=== PATIENT | male | born 1955 | race African-American/Black ===

== ENCOUNTER 2018-12-09 19:42 | Observation (INO) | payer MEDICARE, MEDICAID ==
[2018-12-09 20:13] LABS: ABSOLUTE EOSINOPHILS # (AUTO) 0.1 10^3/uL (0.0-0.6); ABSOLUTE MONOCYTES (AUTO) 0.4 10^3/uL (0.1-1.4); EOSINOPHILS % (AUTO) 1.9 % (0-6); RED BLOOD COUNT 5.69 10^6/uL (4.35-5.55); TOTAL CELLS COUNTED % (AUTO) 100 %
[2018-12-09 20:16] LABS: ABSOLUTE BASOPHILS # (AUTO) 0.1 10^3/uL (0.0-0.2); ABSOLUTE LYMPHOCYTES (AUTO) 2.3 10^3/uL (0.5-4.7); ABSOLUTE NEUT (AUTO) 3.4 10^3/uL (1.7-8.2); BASOPHILS % (AUTO) 1.5 % (0-2); HEMATOCRIT 50.3 % (37.9-51.0); HEMOGLOBIN 17.1 g/dL (13.5-17.0); LYMPHOCYTES % (AUTO) 36.6 % (13-45); MEAN CORPUSCULAR HGB CONC 33.9 g/dL (32.0-36.0); MEAN CORPUSCULAR VOLUME 88 fl (80-97); MONOCYTES % (AUTO) 6.4 % (3-13); RED CELL DISTRIBUTION WIDTH 14.5 % (11.5-14.0); SEGMENTED NEUTROPHILS % (AUTO) 53.6 % (42-78); WHITE BLOOD COUNT 6.3 10^3/uL (4.0-10.5)
[2018-12-09 20:33] LABS: ALBUMIN 4.2 g/dL (3.5-5.0); ALKALINE PHOSPHATASE 91 U/L (38-126); ANION GAP 10 (5-19); ASPARTATE AMINO TRANSFERASE 26 U/L (17-59); BILIRUBIN,DIRECT 0.1 mg/dL (0.0-0.4); BILIRUBIN,TOTAL 0.8 mg/dL (0.2-1.3); BLOOD UREA NITROGEN 15 mg/dL (7-20); CALCIUM 9.9 mg/dL (8.4-10.2); CARBON DIOXIDE 25 mmol/L (22-30); CHLORIDE 105 mmol/L (98-107); CREATINE KINASE 83 U/L (55-170); GLUCOSE 158 mg/dL (75-110); POTASSIUM 3.1 mmol/L (3.6-5.0); TOTAL PROTEIN 7.8 g/dL (6.3-8.2)
[2018-12-09 20:45] LABS: CREATINE KINASE MB 0.27 ng/mL (<4.55); PLATELET COUNT 249 10^3/uL (150-450)
--- NOTE | 2018-12-09 20:45 | RADIOLOGY REPORT (SQ) ---
EXAM DESCRIPTION: XR CHEST 1 VIEW COMPLETED DATE/TME: 12/09/2018 19:51 CLINICAL HISTORY: 63 years Male general weakness COMPARISON: 04/03/2011 FINDINGS: The cardiomediastinal silhouette appears unremarkable. No consolidating infiltrates or pleural effusions. No pneumothorax. IMPRESSION: No acute abnormality is identified.
[2018-12-09 20:46] LABS: TROPONIN I < 0.012 ng/mL
--- NOTE | 2018-12-09 21:20 | ER Document Report ---
ED General - General Chief Complaint: General Weakness Stated Complaint: MUSCLE WEAKNESS Time Seen by Provider: 12/09/18 21:06 Notes: Patient is a 63-year-old male that comes to the emergency department for chief complaint of weakness to his right hand and difficulty walking with frequent falls at home. He states when he stands his right leg started shaking under him and feels like it will not hold his weight. He states this is been going on for 2 weeks now, he states he did not seek evaluation then because he thought it would improve. He comes by EMS from home. He denies headache, chest pain, nausea/vomiting, or any other complaints. Past medical history of hypertension, he does smoke, he takes a baby aspirin daily. He denies history of CVA. He follows with a local [place] clinic. TRAVEL OUTSIDE OF THE [place] IN LAST 30 DAYS: No - Related Data Allergies/Adverse Reactions: No Known Allergies Allergy (Unverified 04/02/11 23:47) Past Medical History - General Information source: Patient - Social History Smoking Status: Current Every Day Smoker Frequency of alcohol use: None Drug Abuse: None Lives with: Family Family History: Reviewed & Not Pertinent Patient has suicidal ideation: No Patient has homicidal ideation: No - Past Medical History Cardiac Medical History: Reports: Hx Hypertension Past Surgical History: Reports: Hx Orthopedic Surgery - R knee replacement - Immunizations Hx Diphtheria, Pertussis, Tetanus Vaccination: Yes Hx Pneumococcal Vaccination: 02/13/00 Review of Systems - Review of Systems Constitutional: No symptoms reported EENT: No symptoms reported Cardiovascular: No symptoms reported Respiratory: No symptoms reported Gastrointestinal: No symptoms reported Genitourinary: No symptoms reported Male Genitourinary: No symptoms reported Musculoskeletal: See HPI Skin: No symptoms reported Hematologic/Lymphatic: No symptoms reported Neurological/Psychological: See HPI Physical Exam - Vital signs Vitals: Resp 21 H 12/09/18 19:50 - Notes Notes: GENERAL: Alert, interacts well. No acute distress. HEAD: Normocephalic, atraumatic. EYES: Pupils equal, round, and reactive to light. Extraocular movements intact. ENT: Oral mucosa moist, tongue midline. Oropharynx unremarkable. Airway patent. LUNGS: Clear to auscultation bilaterally, no wheezes, rales, or rhonchi. No respiratory distress. HEART: Regular rate and rhythm. No murmur ABDOMEN: Soft, non-tender. Non-distended. 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 Normal extremities otherwise, normal distal neurovascular exam. BACK: no cervical, thoracic, lumbar midline tenderness. No saddle anesthesia, normal distal neurovascular exam. Moves all extremities in full range of motion. NEUROLOGICAL: Alert and oriented x3. Normal speech. Cranial nerves II through XII grossly intact. 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 PSYCH: Normal affect, normal mood. SKIN: Warm, dry, normal turgor. No rashes or lesions noted. Course - Re-evaluation Re-evalutation: Patient is alert and well-appearing. No headache. Unremarkable vital signs. Patient has obvious neurological deficit on the right side with difficulty with movement and weakness of the right hand/arm and weakness of the right leg. No o ther neurological deficits noted. CT of the head is negative, chest x-ray unremarkable, CBC, chemistry, EKG nonspecific. Troponin negative. Patient's evaluation is very convincing for CVA however. I did discuss with Dr. Hansen. I discussed with patient. Because patient states he will not be able to get into primary care quickly, patient can barely ambulate and has been staying in bed and having someone run to get him food when they could, I feel patient would best be served by admission to the hospital for risk stratification and even placement. Patient can barely even get out of the bed without full assistance. Discussed with Dr. Ortiz, patient admitted to [facility] observation. - Vital Signs Vital signs: Temp Pulse Resp BP Pulse Ox 97.3 F 82 17 127/68 H 95 12/10/18 06:17 12/10/18 06:20 12/10/18 06:20 12/10/18 06:20 12/10/18 06:20 - Laboratory Result Diagrams: 12/09/18 20:02 12/10/18 04:43 Laboratory results interpreted by me: 12/09/18 12/09/18 20:02 20:02 RBC 5.69 H Hgb 17.1 H RDW 14.5 H Potassium 3.1 L Glucose 158 H Discharge - Discharge Clinical Impression: Right sided weakness Condition: Stable Disposition: ADMITTED OBSERVATION Admitting Provider: Angel (Hospitalist) Unit Admitted: [facility]
--- NOTE | 2018-12-09 21:44 | EKG REPORT ---
SEVERITY:- NORMAL ECG - SINUS RHYTHM : Confirmed by: Dustin Thorpe MD 09-Dec-2018 21:43:49
--- NOTE | 2018-12-09 22:50 | RADIOLOGY REPORT (SQ) ---
CLINICAL HISTORY: right sided weakness COMPARISON: None. TECHNIQUE: CT HEAD WITHOUT IV CONTRAST on 12/09/2018 9:17 PM CDT This exam was performed according to our departmental dose-optimization program, which includes automated exposure control, adjustment of the mA and/or kV according to patient size and/or use of iterative reconstruction technique. FINDINGS: There is no acute hemorrhage, mass effect or midline shift. Bautista-white differentiation is preserved. There is no hydrocephalus. There is no significant volume loss for age. There are mild patchy hypodensities within the periventricular and subcortical white matter, consistent with microangiopathic ischemic changes. The calvarium is intact. Orbits and globes are unremarkable. The paranasal sinuses are clear. Mastoid air cells are clear. IMPRESSION: No acute intracranial findings.
[2018-12-10] MEDS ORDERED: ATORVASTATIN CALCIUM 80 MG TABLET PO ONE (00:15)
[2018-12-10 00:59] LABS: CHOLESTEROL 134.81 mg/dL (0-200); TRIGLYCERIDES 129 mg/dL (<150)
[2018-12-10 01:09] LABS: DIRECT LDL 94 mg/dL (<100)
[2018-12-10] MEDS ORDERED: POTASSIUM CHLORIDE 10 MEQ CAPSULE.ER PO ONE ×2 (03:00→14:00)
[2018-12-10 04:34] LABS: APPEARANCE,URINE CLOUDY; BILIRUBIN,URINE SMALL (NEGATIVE); CALCIUM OXALATE CRYSTALS,URINE RARE /HPF; COLOR,URINE AMBER; GLUCOSE, URINE NEGATIVE (NEGATIVE); KETONES,URINE NEGATIVE (NEGATIVE); LEUKOCYTE ESTERASE,URINE LARGE (NEGATIVE); NITRITE,URINE NEGATIVE (NEGATIVE); PROTEIN,URINE 30 mg/dL (NEGATIVE)
[2018-12-10 04:37] LABS: URINE SPECIFIC GRAVITY 1.026
[2018-12-10] MEDS: HEPARIN SOD (PORCINE) 5,000 UNIT/ML 1 ML VIAL SUBCUT SCH ×3 (05:18→21:39)
--- NOTE | 2018-12-10 05:28 | PDOC H&P ---
History of Present Illness Admission Date/PCP: 12/09/18 23:59 [facility] [facility] Patient complains of: Generalized weakness History of Present Illness: MERCEDES TAI III is a 63 year old male with a past medical history of hypertension presents with 3 weeks of intermittent generalized weakness. He denies palpitations, focal weakness, confusion difficulty with speech, tremor or falls. Patient has reported several different versions of his primary complaint. He denies previous episode, recent change in medication regiment and is otherwise felt fatigued. Past Medical History Medical History: None Past Surgical History Past Surgical History: Reports: Orthopedic Surgery - R knee replacement Social History Information Source: Patient Smoking Status: Current Every Day Smoker Cigarettes Packs Per Day: 0.5 Number of Years Smokin Last Time Smoked: t Frequency of Alcohol Use: None Drugs: None Hx Prescription Drug Abuse: No - Advance Directive Resuscitation Status: Full Code Family History Family History: CVA, Hypertension Parental Family History Reviewed: Yes Children Family History Reviewed: Yes Sibling(s) Family History Reviewed.: Yes Medication/Allergy Home Medications: Oxycodone HCl/Acetaminophen 04/02/11 Travatan 0.004% Eye Drop 04/02/11 Warfarin Sodium 04/02/11 Allergies/Adverse Reactions: No Known Allergies Allergy (Unverified 04/02/11 23:47) Review of Systems Constitutional: ABSENT: chills, fever(s), headache(s), weight gain, weight loss Eyes: ABSENT: visual disturbances Ears: ABSENT: hearing changes Cardiovascular: ABSENT: chest pain, dyspnea on exertion, edema, orthropnea, palpitations Respiratory: ABSENT: cough, hemoptysis Gastrointestinal: ABSENT: abdominal pain, constipation, diarrhea, hematemesis, hematochezia, nausea, vomiting Genitourinary: ABSENT: dysuria, hematuria Musculoskeletal: ABSENT: joint swelling Integumentary: ABSENT: rash, wounds Neurological: ABSENT: abnormal gait, abnormal speech, confusion, dizziness, focal weakness, syncope Psychiatric: ABSENT: anxiety, depression, homidical ideation, suicidal ideation Endocrine: ABSENT: cold intolerance, heat intolerance, polydipsia, polyuria Hematologic/Lymphatic: ABSENT: easy bleeding, easy bruising Physical Exam Vital Signs: Temp Pulse Resp BP Pulse Ox 97.9 F 72 18 129/83 H 99 12/10/18 02:44 12/10/18 02:44 12/10/18 02:44 12/10/18 02:44 12/10/18 02:44 Intake & Output 12/08/18 12/09/18 12/10/18 11:59 11:59 11:59 Weight 84.2 kg General appearance: PRESENT: no acute distress, well-developed, well-nourished Head exam: PRESENT: atraumatic, normocephalic Eye exam: PRESENT: conjunctiva pink, EOMI, PERRLA. ABSENT: scleral icterus Ear exam: PRESENT: normal external ear exam Mouth exam: PRESENT: moist, tongue midline Neck exam: ABSENT: carotid bruit, JVD, lymphadenopathy, thyromegaly Respiratory exam: PRESENT: clear to auscultation jenise. ABSENT: rales, rhonchi, wheezes Cardiovascular exam: PRESENT: RRR. ABSENT: diastolic murmur, rubs, systolic murmur Pulses: PRESENT: normal dorsalis pedis pul Vascular exam: PRESENT: normal capillary refill GI/Abdominal exam: PRESENT: normal bowel sounds, soft. ABSENT: distended, guarding, mass, organolmegaly, rebound, tenderness Rectal exam: PRESENT: deferred Extremities exam: PRESENT: full ROM. ABSENT: calf tenderness, clubbing, pedal edema Neurological exam: PRESENT: alert, awake, oriented to person, oriented to place, oriented to time, oriented to situation, CN II-XII grossly intact. ABSENT: motor sensory deficit Psychiatric exam: PRESENT: appropriate affect, normal mood. ABSENT: homicidal ideation, suicidal ideation Skin exam: PRESENT: dry, intact, warm. ABSENT: cyanosis, rash Results Laboratory Results: 12/09/18 20:02 12/09/18 12/09/18 12/09/18 20:02 20:02 20:02 WBC 6.3 RBC 5.69 H Hgb 17.1 H Hct 50.3 MCV 88 MCH 30.0 MCHC 33.9 RDW 14.5 H Plt Count 249 Seg Neutrophils % 53.6 Sodium 140.1 Potassium 3.1 L Chloride 105 Carbon Dioxide 25 Anion Gap 10 BUN 15 Creatinine 1.15 Est GFR ( Amer) > 60 Glucose 158 H Calcium 9.9 Magnesium 2.0 Total Bilirubin 0.8 AST 26 Alkaline Phosphatase 91 Total Protein 7.8 Albumin 4.2 Triglycerides Cholesterol LDL Cholesterol Direct VLDL Cholesterol HDL Cholesterol TSH Urine Color Urine Appearance Urine pH Ur Specific [place] Urine Protein Urine Glucose (UA) Urine Ketones Urine Blood Urine Nitrite Ur Leukocyte Esterase Urine WBC (Auto) Urine RBC (Auto) 12/10/18 12/10/18 12/10/18 00:26 00:26 03:37 WBC RBC Hgb Hct MCV MCH MCHC RDW Plt Count Seg Neutrophils % Sodium Potassium Chloride Carbon Dioxide Anion Gap BUN Creatinine Est GFR ( Amer) Glucose Calcium Magnesium Total Bilirubin AST Alkaline Phosphatase Total Protein Albumin Triglycerides 129 Cholesterol 134.81 LDL Cholesterol Direct 94 VLDL Cholesterol 26.0 HDL Cholesterol 27 L TSH 1.34 Urine Color FOREST Urine Appearance CLOUDY Urine pH 6.0 Ur Specific [place] 1.026 Urine Protein 30 H Urine Glucose (UA) NEGATIVE Urine Ketones NEGATIVE Urine Blood NEGATIVE Urine Nitrite NEGATIVE Ur Leukocyte Esterase LARGE H Urine WBC (Auto) >182 Urine RBC (Auto) 24 12/09/18 12/09/18 12/10/18 20:02 20:02 00:26 Creatine Kinase 83 CK-MB (CK-2) 0.27 Troponin I < 0.012 < 0.012 Impressions: Chest X-Ray 12/09/18 19:51 IMPRESSION: No acute abnormality is identified. Head CT 12/09/18 21:17 IMPRESSION: No acute intracranial findings. Assessment and Plan - Diagnosis (1) Generalized weakness Is this a current diagnosis for this admission?: Yes Plan: Challenging historian with multiple versions of primary complaint, follow-up CVA care set, TSH, RPR, B12 and copper level. (2) Hypertension Is this a current diagnosis for this admission?: Yes Plan: Permissive hypertension (3) Tobacco abuse Is this a current diagnosis for this admission?: Yes Plan: Nicotine replacement options discussed and cessation counseling performed. - Time Time Spent with patient: 25-34 minutes - Inpatient Certification Medical Necessity: Need Close Monitoring Due to Risk of Patient Decompensation
[2018-12-10 05:43] LABS: ANION GAP 8 (5-19); BLOOD UREA NITROGEN 16 mg/dL (7-20); CALCIUM 9.7 mg/dL (8.4-10.2); CARBON DIOXIDE 26 mmol/L (22-30); CHLORIDE 106 mmol/L (98-107); GLUCOSE 98 mg/dL (75-110)
[2018-12-10 06:17] LABS: POTASSIUM 4.1 mmol/L (3.6-5.0)
--- NOTE | 2018-12-10 07:30 | Progress Note ---
Provider Note Provider Note: 12/10/2018-patient admitted early a.m. Awaiting MRI and carotid Doppler. Will make change plan of care based on future findings.
[2018-12-10] MEDS: ASPIRIN 81 MG TABLET, ENT COATED PO SCH (10:30)
--- NOTE | 2018-12-10 12:09 | RADIOLOGY REPORT (SQ) ---
EXAM DESCRIPTION: CAROTID DOPPLER COMPLETED DATE/TIME: 12/10/2018 10:44 am REASON FOR STUDY: Right side weak cva COMPARISON: None. TECHNIQUE: Grayscale ultrasound, Doppler velocity and spectra, and color Doppler images acquired of the extra-cranial carotid and vertebral arteries. Images stored on PACS. LIMITATIONS: None. FINDINGS: RIGHT CAROTID CCA Velocities: Within normal limits. ICA Velocities Peak systolic 97 cm/s. End diastolic 46 cm/s. Proximal ICA/CCA peak systolic ratio 0.9. There is small amount of plaque in the distal CCA. LEFT CAROTID CCA Velocities: Within normal limits. ICA Velocities Peak systolic 81 cm/s. End diastolic 30 East cm/s. Proximal ICA/CCA peak systolic ratio 0.8. Spectra normal. No significant plaque. VERTEBRAL ARTERIES: Antegrade flow. Normal waveforms. SUBCLAVIAN ARTERIES: No finding. OTHER: No other significant finding. IMPRESSION: NO HEMODYNAMICALLY SIGNIFICANT STENOSIS. COMMENT: Quality ID #[id number]: Velocity criteria are extrapolated from the diameter data as defined by t he Society of Radiologists in Ultrasound Consensus Conference. Radiology 2003: 229; 340-346. TECHNICAL DOCUMENTATION: JOB ID: [id number] [employer]- All Rights Reserved Reading location - IP/workstation name: [email or web address]
--- NOTE | 2018-12-10 13:15 | RADIOLOGY REPORT (SQ) ---
EXAM DESCRIPTION: MRI HEAD WITHOUT COMPLETED DATE/TIME: 12/10/2018 9:18 am REASON FOR STUDY: cva COMPARISON: None. TECHNIQUE: Multiplanar imaging includes non-contrasted T1, T2, FLAIR, and diffusion with ADC map seq uences. Images stored on PACS. LIMITATIONS: None. FINDINGS: ANATOMY: No anomalies. Normal vascular flow voids. Pituitary fossa normal. CSF SPACES: Normal in size and contour. No hemorrhage. CEREBRUM: Sulci and gyri normal in size and contour. Normal white matter signal on FLAIR imaging. No evidence of hemorrhage, mass, or extraaxial fluid collection. POSTERIOR FOSSA: No signal alteration. No hemorrhage. No edema, masses or mass effect. Internal oscar tory canals, cerebello-pontine angles, mastoids normal. DIFFUSION IMAGING: Negative for acute or sub-acute infarction. ORBITS: No masses. Globes normal. PARANASAL SINUSES: No fluid levels. Mucosa normal. OTHER: No other significant finding. IMPRESSION: NORMAL MRI OF THE BRAIN WITHOUT INTRAVENOUS GADOLINIUM CONTRAST. EVIDENCE OF ACUTE STROKE: NO. TECHNICAL DOCUMENTATION: JOB ID: [id number] [employer]- All Rights Reserved Reading location - IP/workstation name: [email or web address]
[2018-12-10] MEDS: DILTIAZEM HCL 30 MG TABLET PO SCH ×2 (14:16→21:39)
[2018-12-10] MEDS: CEFTRIAXONE 1 GM/D5W RTU 1 GM/50 ML RTUPB IV SCH (14:17)
[2018-12-10] MEDS ORDERED: ATORVASTATIN CALCIUM 80 MG TABLET PO SCH (22:00)
[2018-12-11] MEDS: DILTIAZEM HCL 30 MG TABLET PO SCH ×2 (06:12→14:07)
[2018-12-11] MEDS: HEPARIN SOD (PORCINE) 5,000 UNIT/ML 1 ML VIAL SUBCUT SCH ×2 (06:12→14:07)
--- NOTE | 2018-12-11 09:13 | PDOC DISCHARGE SUMMARY ---
Impression - Admit/DC Date/PCP Admission Date/Primary Care Provider: 12/09/18 23:59 [facility] Discharge Date: 12/11/18 - Discharge Diagnosis (1) UTI (urinary tract infection) Is this a current diagnosis for this admission?: Yes (2) Diabetes mellitus type 2 in nonobese Is this a current diagnosis for this admission?: Yes (3) Generalized weakness Is this a current diagnosis for this admission?: Yes (4) Hypertension Is this a current diagnosis for this admission?: Yes (5) Tobacco abuse Is this a current diagnosis for this admission?: Yes - Additional Information Resuscitation Status: Full Code Discharge Diet: As Tolerated Discharge Activity: Activity As Tolerated Referrals: [facility] [Primary Care Provider] - Home Medications: Amlodipine Besylate [Norvasc 10 mg Tablet] 10 mg PO DAILY 12/10/18 Latanoprost [Xalatan 0.005% Oph Soln 2.5 ml] 1 drop OS QHS 12/10/18 Zinc Gluconate [Zinc] 50 mg PO DAILY 12/10/18 History of Present Illiness History of Present Illness: MERCEDES TAI III is a 63 year old male presented to the emergency department with a history of hypertension and a 3-week intermittent generalized weakness. Patient states this grossly worsened over the last several weeks. Hospital Course Hospital Course: Patient presented to the ER 12/09/2018 with generalized weakness. Patient has medical history of hypertension and stated a 3-week intermittent generalized weakness progression. He denies palpitations, focal weakness, confusion or difficulty with speech. Patient admitted to IMCU and obtain a MRI of the brain which was negative and a carotid Doppler which was negative. Patient did have a large leukocyte Estrace in his urine and will be continued on antibiotics at this time. I will send patient home on Cipro 500 mg twice daily x7 days. Patient will also continue aspirin daily and will have physical therapy at home for his generalized weakness. Patient was follow-up with his primary care practitioner within 1 week and agrees with plan of care. Physical Exam Vital Signs: Temp Pulse Resp BP Pulse Ox 98.2 F 75 14 124/63 96 12/10/18 11:52 12/11/18 08:23 12/11/18 08:23 12/11/18 08:23 12/11/18 08:23 Intake & Output 12/10/18 12/11/18 12/12/18 06:59 06:59 06:59 Intake Total 600 Output Total 150 150 Balance -150 450 Weight 84 kg 84 kg General appearance: PRESENT: no acute distress, well-developed, well-nourished Head exam: PRESENT: atraumatic, normocephalic Eye exam: PRESENT: conjunctiva pink, EOMI, PERRLA. ABSENT: scleral icterus Ear exam: PRESENT: normal external ear exam Mouth exam: PRESENT: moist, tongue midline Neck exam: ABSENT: carotid bruit, JVD, lymphadenopathy, thyromegaly Respiratory exam: PRESENT: clear to auscultation jenise. ABSENT: rales, rhonchi, wheezes Cardiovascular exam: PRESENT: RRR. ABSENT: diastolic murmur, rubs, systolic murmur Pulses: PRESENT: normal dorsalis pedis pul Vascular exam: PRESENT: normal capillary refill GI/Abdominal exam: PRESENT: normal bowel sounds, soft. ABSENT: distended, guarding, mass, organolmegaly, rebound, tenderness Rectal exam: PRESENT: deferred Extremities exam: PRESENT: full ROM. ABSENT: calf tenderness, clubbing, pedal edema Neurological exam: PRESENT: alert, awake, oriented to person, oriented to place, oriented to time, oriented to situation, CN II-XII grossly intact. ABSENT: motor sensory deficit Psychiatric exam: PRESENT: appropriate affect, normal mood. ABSENT: homicidal ideation, suicidal ideation Skin exam: PRESENT: dry, intact, warm. ABSENT: cyanosis, rash Results Laboratory Results: WBC 6.3 10^3/uL (4.0-10.5) 12/09/18 20:02 RBC 5.69 10^6/uL (4.35-5.55) H 12/09/18 20:02 Hgb 17.1 g/dL (13.5-17.0) H 12/09/18 20:02 Hct 50.3 % (37.9-51.0) 12/09/18 20:02 MCV 88 fl (80-97) 12/09/18 20:02 MCH 30.0 pg (27.0-33.4) 12/09/18 20:02 MCHC 33.9 g/dL (32.0-36.0) 12/09/18 20:02 RDW 14.5 % (11.5-14.0) H 12/09/18 20:02 Plt Count 249 10^3/uL (150-450) 12/09/18 20:02 Lymph % (Auto) 36.6 % (13-45) 12/09/18 20:02 [place] % (Auto) 6.4 % (3-13) 12/09/18 20:02 Eos % (Auto) 1.9 % (0-6) 12/09/18 20:02 Baso % (Auto) 1.5 % (0-2) 12/09/18 20:02 Absolute Neuts (auto) 3.4 10^3/uL (1.7-8.2) 12/09/18 20:02 Absolute Lymphs (auto) 2.3 10^3/uL (0.5-4.7) 12/09/18 20:02 Absolute Monos (auto) 0.4 10^3/uL (0.1-1.4) 12/09/18 20:02 Absolute Eos (auto) 0.1 10^3/uL (0.0-0.6) 12/09/18 20:02 Absolute Basos (auto) 0.1 10^3/uL (0.0-0.2) 12/09/18 20:02 Seg Neutrophils % 53.6 % (42-78) 12/09/18 20:02 Sodium 140.1 mmol/L (137-145) 12/10/18 04:43 Potassium 4.1 mmol/L (3.6-5.0) D 12/10/18 04:43 Chloride 106 mmol/L (98-107) 12/10/18 04:43 Carbon Dioxide 26 mmol/L (22-30) 12/10/18 04:43 Anion Gap 8 (5-19) 12/10/18 04:43 BUN 16 mg/dL (7-20) 12/10/18 04:43 Creatinine 1.08 mg/dL (0.52-1.25) 12/10/18 04:43 Est GFR ( Amer) > 60 (>60) 12/10/18 04:43 Est GFR (MDRD) Non-Af > 60 (>60) 12/10/18 04:43 Glucose 98 mg/dL (75-110) 12/10/18 04:43 Hemoglobin A1c % 6.5 % (4.7-6.0) H 12/10/18 04:43 Calcium 9.7 mg/dL (8.4-10.2) 12/10/18 04:43 Magnesium 2.0 mg/dL (1.6-2.3) 12/09/18 20:02 Total Bilirubin 0.8 mg/dL (0.2-1.3) 12/09/18 20:02 Direct Bilirubin 0.1 mg/dL (0.0-0.4) 12/09/18 20:02 Neonat Total Bilirubin Not Reportable 12/09/18 20:02 Neonat Direct Bilirubin Not Reportable 12/09/18 20:02 Neonat Indirect Bili Not Reportable 12/09/18 20:02 AST 26 U/L (17-59) 12/09/18 20:02 ALT 19 U/L (<50) 12/09/18 20:02 Alkaline Phosphatase 91 U/L (38-126) 12/09/18 20:02 Creatine Kinase 83 U/L (55-170) 12/09/18 20:02 CK-MB (CK-2) 0.27 ng/mL (<4.55) 12/09/18 20:02 Troponin I < 0.012 ng/mL 12/10/18 00:26 Total Protein 7.8 g/dL (6.3-8.2) 12/09/18 20:02 Albumin 4.2 g/dL (3.5-5.0) 12/09/18 20:02 Triglycerides 129 mg/dL (<150) 12/10/18 00:26 Cholesterol 134.81 mg/dL (0-200) 12/10/18 00:26 LDL Cholesterol Direct 94 mg/dL (<100) 12/10/18 00:26 VLDL Cholesterol 26.0 mg/dL (10-31) 12/10/18 00:26 HDL Cholesterol 27 mg/dL (>40) L 12/10/18 00:26 TSH 1.34 uIU/mL (0.47-4.68) 12/10/18 00:26 Urine Color FOREST 12/10/18 03:37 Urine Appearance CLOUDY 12/10/18 03:37 Urine pH 6.0 (5.0-9.0) 12/10/18 03:37 Ur Specific [place] 1.026 12/10/18 03:37 Urine Protein 30 mg/dL (NEGATIVE) H 12/10/18 03:37 Urine Glucose (UA) NEGATIVE mg/dL (NEGATIVE) 12/10/18 03:37 Urine Ketones NEGATIVE mg/dL (NEGATIVE) 12/10/18 03:37 Urine Blood NEGATIVE (NEGATIVE) 12/10/18 03:37 Urine Nitrite NEGATIVE (NEGATIVE) 12/10/18 03:37 Urine Bilirubin SMALL (NEGATIVE) H 12/10/18 03:37 Urine Urobilinogen 8.0 mg/dL (<2.0) H 12/10/18 03:37 Ur Leukocyte Esterase LARGE (NEGATIVE) H 12/10/18 03:37 Urine WBC (Auto) >182 /HPF 12/10/18 03:37 Urine RBC (Auto) 24 /HPF 12/10/18 03:37 U Hyaline Cast (Auto) 3 /LPF 12/10/18 03:37 Urine WBC Clumps FEW /HPF 12/10/18 03:37 Squamous Epi Cells Auto 1 /HPF 12/10/18 03:37 Calcium Oxalate Cr Auto RARE /HPF 12/10/18 03:37 Urine Mucus (Auto) MOD /LPF 12/10/18 03:37 Urine Ascorbic Acid NEGATIVE (NEGATIVE) 12/10/18 03:37 RPR NONREACTIVE (NONREACTIVE) 12/10/18 04:43 12/09/18 12/10/18 20:02 00:26 CK-MB (CK-2) 0.27 Troponin I < 0.012 < 0.012 Impressions: Chest X-Ray 12/09/18 19:51 IMPRESSION: No acute abnormality is identified. Head CT 12/09/18 21:17 IMPRESSION: No acute intracranial findings. Head MRI 12/09/18 23:58 IMPRESSION: NORMAL MRI OF THE BRAIN WITHOUT INTRAVENOUS GADOLINIUM CONTRAST. EVIDENCE OF ACUTE STROKE: NO. Carotid Doppler Study 12/10/18 00:00 IMPRESSION: NO HEMODYNAMICALLY SIGNIFICANT STENOSIS. Plan Time Spent: Greater than 30 Minutes Stroke Is this a Stroke Patient?: No Acute Heart Failure - Is this a Heart Failure Patient?: No
[2018-12-11] MEDS: ASPIRIN 81 MG TABLET, ENT COATED PO SCH (09:40)
[2018-12-11] MEDS: CEFTRIAXONE 1 GM/D5W RTU 1 GM/50 ML RTUPB IV SCH (11:02)
[2018-12-11 16:18] VITALS: BP 127/68
== END 2018-12-11 16:39 | disposition home health service (06) ==
LOC: ER 19:42 → EH 23:59 → 3N 12-10 02:35
PROVIDERS: ADMIT Internal Medicine; ATTEND Internal Medicine
DX: N39.0 Urinary tract infection, site not specified (principal); R53.1 Weakness; R00.0 Tachycardia, unspecified; E11.9 Type 2 diabetes mellitus without complications; I10 Essential (primary) hypertension; F17.210 Nicotine dependence, cigarettes, uncomplicated; R29.6 Repeated falls; Z96.651 Presence of right artificial knee joint; Z82.49 Family history of ischemic heart disease and other diseases of the circulatory system; Z82.3 Family history of stroke; Z79.02 Long term (current) use of antithrombotics/antiplatelets; Z79.82 Long term (current) use of aspirin
CPT/HCPCS: 93005; 99285; 36415 ×2; 82553; 82962; 82550; 83735; 84443; 82525; 85025; 86592; 80048; 80053; 81001; 84484 ×2; 83036; 80061; 93880; 70551; 71045; 70450; 93010; 97116; 97163; 97535; 97167; G0378 ×3; J1644 ×2; A9270 ×6; J3490 ×2; J0696 ×2

== ENCOUNTER 2018-12-13 11:43 | Observation (INO) | payer MEDICARE, MEDICAID ==
--- NOTE | 2018-12-13 12:30 | ER Document Report ---
ED Medical Screen (RME) - General Chief Complaint: Weakness Stated Complaint: WEAKNESS Time Seen by Provider: 12/13/18 12:25 Primary Care Provider: ARELI,TREVA [Primary Care Provider] - Follow up as needed Mode of Arrival: Wheelchair Information source: Patient Notes: 63-year-old male presented to ED for complaint of increase in symptoms. He states he was released yesterday or the day before for a stroke. He states he thinks he has had another one since the last discharge. He states he was also told that he had high blood pressure and possible borderline diabetes. Patient is alert oriented respirations regular nonlabored speaking in full sentences answering questions appropriately. He states he is weak on both sides. Weaker on the right side. He states he cannot open or close his right hand. I have greeted and performed a rapid initial assessment of this patient. A comprehensive ED assessment and evaluation of the patient, analysis of test resu lts and completion of medical decision making process will be conducted by an additional ED providers. TRAVEL OUTSIDE OF THE [place] IN LAST 30 DAYS: No - Related Data Allergies/Adverse Reactions: No Known Allergies Allergy (Unverified 04/02/11 23:47) Past Medical History - Past Medical History Cardiac Medical History: Reports: Hx Hypertension Past Surgical History: Reports: Hx Orthopedic Surgery - R knee replacement - Immunizations Hx Diphtheria, Pertussis, Tetanus Vaccination: Yes Doctor's Discharge - Discharge Referrals: [facility] [Primary [facility]] - Follow up as needed
--- NOTE | 2018-12-13 14:07 | RADIOLOGY REPORT (SQ) ---
EXAM DESCRIPTION: CT HEAD WITHOUT COMPLETED DATE/TIME: 12/13/2018 1:53 pm REASON FOR STUDY: Weakness COMPARISON: None. TECHNIQUE: Axial images acquired through the brain without intravenous contrast. Images reviewed wit h bone, brain and subdural windows. Images stored on PACS. All CT scanners at this facility use dose modulation, iterative reconstruction, and/or weight based d osing when appropriate to reduce radiation dose to as low as reasonably achievable (ALARA). [facility]: Dose Right [facility]: CareDose [facility]: Dose Right [facility]: Teradose 4D [facility]: Smart YouData RADIATION DOSE: CT Rad equipment meets quality standard of care and radiation dose reduction techniq ues were employed. CTDIvol: 53.2 mGy. DLP: 991 mGy-cm.. LIMITATIONS: None. FINDINGS: VENTRICLES: Normal size and contour. CEREBRUM: No masses. No hemorrhage. No midline shift. Age appropriate white matter. No evidence for a cute infarction. CEREBELLUM: No masses. No hemorrhage. No alteration of density. No evidence for acute infarction. EXTRA-AXIAL SPACES: No fluid collections. ORBITS AND GLOBE: No intra- or extraconal masses. Normal contour of globe without masses. CALVARIUM: No fracture. PARANASAL SINUSES: No fluid or mucosal thickening. SOFT TISSUES: No mass or hematoma. OTHER: No other significant finding. IMPRESSION: NO ACUTE INTRACRANIAL FINDINGS. EVIDENCE OF ACUTE STROKE: NO. TECHNICAL DOCUMENTATION: JOB ID: [id number] [place]-72 Quality ID # [id number]: Final reports with documentation of one or more dose reduction techniques (e.g., Au tomated exposure control, adjustment of the mA and/or kV according to patient size, use of iterative reconstruction technique) 2010 [employer]- All Rights Reserved Reading location - IP/workstation name: [email or web address]
--- NOTE | 2018-12-13 14:08 | RADIOLOGY REPORT (SQ) ---
EXAM DESCRIPTION: CHEST SINGLE VIEW COMPLETED DATE/TIME: 12/13/2018 1:56 pm REASON FOR STUDY: Weakness COMPARISON: 12/09/2018 TECHNIQUE: Single frontal radiographic view of the chest acquired. NUMBER OF VIEWS: One view. LIMITATIONS: None. FINDINGS: LUNGS AND PLEURA: No pneumothorax. No consolidation or pleural effusion. MEDIASTINUM AND HILAR STRUCTURES: Stable. HEART AND VASCULAR STRUCTURES: Stable. BONES: No acute findings. HARDWARE: None in the chest. OTHER: No other significant finding. IMPRESSION: NO ACUTE FINDINGS. TECHNICAL DOCUMENTATION: JOB ID: [id number] TX-72 2010 [employer]- All Rights Reserved Reading location - IP/workstation name: [email or web address]
--- NOTE | 2018-12-13 15:27 | ER Document Report ---
ED General - General Chief Complaint: S/S of Possible Stroke Stated Complaint: WEAKNESS Time Seen by Provider: 12/13/18 12:25 Mode of Arrival: Wheelchair Notes: Patient is a 63-year-old male who presents the emergency department with a chief complaint of weakness. Patient states that he was released yesterday from the hospital. Past medical history includes hypertension. Patient states that he had mini strokes, but was discharged with a urinary tract infection. Patient states that he has been taking his medication. Denies any abdominal pain or dysuria. Patient states that his weakness is in his bilateral hands with the right being worse than the left. Patient states that he feels like he maybe had another stroke. TRAVEL OUTSIDE OF THE [place] IN LAST 30 DAYS: No - Related Data Allergies/Adverse Reactions: No Known Allergies Allergy (Unverified 04/02/11 23:47) Past Medical History - General Information source: Patient - Social History Smoking Status: Never Smoker Chew tobacco use (# tins/day): No Frequency of alcohol use: None Drug Abuse: None Family History: Reviewed & Not Pertinent Patient has suicidal ideation: No Patient has homicidal ideation: No - Past Medical History Cardiac Medical History: Reports: Hx Hypertension Past Surgical History: Reports: Hx Orthopedic Surgery - R knee replacement - Immunizations Hx Diphtheria, Pertussis, Tetanus Vaccination: Yes Hx Pneumococcal Vaccination: 02/13/00 Review of Systems - Review of Systems Notes: REVIEW OF SYSTEMS: CONSTITUTIONAL : Denies recent illness. Denies recent unintentional weight loss. Denies fever, chills, or sweats. EENT: Denies eye, ear, throat, or mouth pain, discharge, or symptoms. Denies nasal or sinus congestion. CARDIOVASCULAR: Denies chest pain. RESPIRATORY: Denies shortness of breath, cough, congestion, difficulty breathing, or wheezing. GASTROINTESTINAL: Denies nausea, vomiting, and diarrhea. Denies abdominal pain. Denies constipation. GENITOURINARY: Denies difficulty urinating, burning, blood in urine, urgency or frequency. MUSCULOSKELETAL: Denies neck and back pain. Denies joint pain or swelling. SKIN: Denies rash, itchiness, or lesions HEMATOLOGIC : Denies easy bruising or bleeding. LYMPHATIC: Denies swollen, painful, enlarged glands. NEUROLOGICAL: See HPI. PSYCHIATRIC: Denies stress, anxiety, alteration in sleep patterns, or depression. All other systems reviewed and negative. Physical Exam - Vital signs Vitals: Temp Pulse Resp BP Pulse Ox 97.5 F 74 16 120/72 100 12/13/18 12:32 12/13/18 12:32 12/13/18 12:32 12/13/18 12:32 12/13/18 12:32 - Notes Notes: PHYSICAL EXAMINATION: GENERAL: Appears well, healthy, well-nourished, no acute distress. HEAD: Normocephalic, atraumatic. EYES: PERRL, conjunctiva normal, all extraocular movements intact, sclera nonicteric ENT: Moist mucous membranes. NECK: Supple, no noticeable swelling, redness, rash. Normal range of motion. LUNGS: Equal breath sounds bilaterally and clear to auscultation. No wheezes rales or rhonchi. CARDIOVASCULAR: S1-S2, regular rate, regular rhythm. Radial pulses 2+, normal. ABDOMEN: Normoactive bowel sounds. Soft, nontender, no guarding, no rebound tenderness, and no masses palpated. EXTREMITIES: Normal strength and range of motion, no pitting or edema. No cyanosis. NEUROLOGICAL: Moves all extremities upon command. 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 PSYCH: Normal mood, normal affect. SKIN: Warm, dry. No rash, lesions, ulcerations noted. Normal skin turgor. Course - Re-evaluation Re-evalutation: 12/13/18 15:34 I spoke with Bobby Boateng, the nurse practitioner who discharged the patient last night and he states that the patient was not having TIAs and he was apparently discharged to custodial. 12/13/18 16:49 I was able to speak with the casework supervisor from the third floor who states that yesterday the patient was walking with a walker with no difficulty. I got the patient up with MICHELET Mejía and we walked the patient. His legs Buckling. At this time I will call the hospitalist to see if the patient can be admitted. I do not feel comfortable with the patient going home at this time with not being able to walk. 12/13/18 17:00 Spoke with SYLWIA Farmer. Patient will be admitted to the medical floor. - Vital Signs Vital signs: Temp Pulse Resp BP Pulse Ox 97.5 F 96 20 141/94 H 97 12/13/18 22:03 12/13/18 22:06 12/13/18 22:03 12/13/18 22:03 12/13/18 22:03 - Laboratory Result Diagrams: 12/13/18 15:32 12/13/18 15:32 Laboratory results interpreted by me: 12/13/18 12/13/18 12/13/18 15:32 15:32 15:32 RBC 6.13 H Hgb 18.3 H Hct 54.5 H RDW 14.4 H C-Reactive Protein 13.2 H Total Protein 8.3 H Discharge - Discharge Clinical Impression: Ambulatory dysfunction Condition: Fair Disposition: ADMITTED INPATIENT Admitting Provider: Christopher (Hospitalist) Unit Admitted: Medical Floor
[2018-12-13 15:43] LABS: ABSOLUTE BASOPHILS # (AUTO) 0.1 10^3/uL (0.0-0.2); ABSOLUTE EOSINOPHILS # (AUTO) 0.1 10^3/uL (0.0-0.6); ABSOLUTE LYMPHOCYTES (AUTO) 2.5 10^3/uL (0.5-4.7); ABSOLUTE MONOCYTES (AUTO) 0.5 10^3/uL (0.1-1.4); ABSOLUTE NEUT (AUTO) 4.1 10^3/uL (1.7-8.2); BASOPHILS % (AUTO) 0.9 % (0-2); HEMATOCRIT 54.5 % (37.9-51.0); HEMOGLOBIN 18.3 g/dL (13.5-17.0); LYMPHOCYTES % (AUTO) 33.9 % (13-45); MEAN CORPUSCULAR HEMOGLOBIN 29.9 pg (27.0-33.4); MEAN CORPUSCULAR HGB CONC 33.7 g/dL (32.0-36.0); MEAN CORPUSCULAR VOLUME 89 fl (80-97); MONOCYTES % (AUTO) 7.3 % (3-13); PLATELET COUNT 220 10^3/uL (150-450); RED BLOOD COUNT 6.13 10^6/uL (4.35-5.55); RED CELL DISTRIBUTION WIDTH 14.4 % (11.5-14.0); SEGMENTED NEUTROPHILS % (AUTO) 55.9 % (42-78); TOTAL CELLS COUNTED % (AUTO) 100 %; WHITE BLOOD COUNT 7.4 10^3/uL (4.0-10.5)
[2018-12-13 15:45] LABS: INTERNATIONAL RATION (INR) 1.02
[2018-12-13 15:46] LABS: PARTIAL THROMBOPLASTIN TIME 29.5 SEC (23.5-35.8)
[2018-12-13 15:49] LABS: PROTHROMBIN TIME 13.4 SEC (11.4-15.4)
[2018-12-13 16:00] LABS: ALBUMIN 4.5 g/dL (3.5-5.0); ALKALINE PHOSPHATASE 112 U/L (38-126); ANION GAP 7 (5-19); ASPARTATE AMINO TRANSFERASE 25 U/L (17-59); BILIRUBIN,DIRECT 0.1 mg/dL (0.0-0.4); BILIRUBIN,TOTAL 0.7 mg/dL (0.2-1.3); BLOOD UREA NITROGEN 15 mg/dL (7-20); CALCIUM 10.2 mg/dL (8.4-10.2); CARBON DIOXIDE 30 mmol/L (22-30); CHLORIDE 101 mmol/L (98-107); CREATINE KINASE 84 U/L (55-170); GLUCOSE 97 mg/dL (75-110); POTASSIUM 4.8 mmol/L (3.6-5.0); TOTAL PROTEIN 8.3 g/dL (6.3-8.2)
[2018-12-13 16:12] LABS: CREATINE KINASE MB 0.57 ng/mL (<4.55)
[2018-12-13 16:16] LABS: TROPONIN I < 0.012 ng/mL
[2018-12-13] MEDS ORDERED: DEXTROSE 40% GEL 15 GM TUBE PO PRN ×2 (17:59)
[2018-12-13] MEDS ORDERED: DEXTROSE 50%-WATER 25 GM/50 ML DISP.SYRIN IV PRN ×2 (17:59)
[2018-12-13] MEDS ORDERED: ONDANSETRON HCL INJ/PF 4 MG/2 ML SDV IV PRN (17:59)
[2018-12-13] MEDS ORDERED: ZOLPIDEM TARTRATE 5 MG TABLET PO PRN (17:59)
[2018-12-13] MEDS ORDERED: ACETAMINOPHEN 325 MG TABLET PO PRN (17:59)
[2018-12-13] MEDS ORDERED: OXYCODONE-ACETAMINOPHEN 5-325 MG TABLET PO PRN (17:59)
[2018-12-13] MEDS ORDERED: ONDANSETRON 4 MG TAB.RAPDIS PO PRN (17:59)
[2018-12-13] MEDS ORDERED: MAG HYDROX/AL HYDROX/SIMETH SUSP 30 ML UDCUP PO PRN (17:59)
[2018-12-13] MEDS ORDERED: GLUCAGON,HUMAN RECOMB 1 MG INJ SUBCUT PRN (17:59)
[2018-12-13] MEDS ORDERED: MAGNESIUM HYDROXIDE SUSP 30 ML UDCUP PO PRN (17:59)
--- NOTE | 2018-12-13 18:16 | EKG REPORT ---
SEVERITY:- NORMAL ECG - SINUS RHYTHM : Confirmed by: Dustin Thorpe MD 13-Dec-2018 18:15:30
--- NOTE | 2018-12-13 18:27 | PDOC H&P ---
History of Present Illness Admission Date/PCP: 12/13/18 17:22 [facility] History of Present Illness: MERCEDES TAI III is a 63 year old male who was just discharged home from the hospital 2 days ago with generalized weakness and possible TIA. Patient and his sister who was on the phone from [place] are upset because he was not sent home with a wheelchair or any arrangements made for his generalized weakness. So they are upset because they states that he is unable to walk by himself and that no plans were made for him to have rehab. Prior to seeing the patient in the ER I spoke to the discharge planning and she stated that it had been documented in the chart that he was walking the hallway with PT and with assistance. [facility] that home health and physical therapy have been set up for the patient at home. According to the nurse practitioner EMS was called today by physical therapy who went to the house and said he was so weak he could not stand. Patient denies pain. Patient did have a UTI when he was here and was sent home on Cipro to finish his antibiotics. His other medical problems include hypertension. A long discussion was had with the patient as well as his sister on the phone who is in [place] about utilization criteria discharge planning, garments for observation status versus inpatient status. Told he might have somebody from the hospital contact them tomorrow that they can discuss their issues. Patient appears to have had a very thorough work-up the last time he was here with an MRI scan of the brain which showed no abnormalities at all carotid Dopplers which were completely normal CT head scan today that is normal showing no acute findings. Past Medical History Cardiac Medical History: Reports: Hypertension Past Surgical History Past Surgical History: Reports: Orthopedic Surgery - R knee replacement Social History Smoking Status: Never Smoker Electronic Cigarette use?: No Frequency of Alcohol Use: None Drugs: None Hx Prescription Drug Abuse: No - Advance Directive Resuscitation Status: Full Code Family History Family History: Reviewed & Not Pertinent Parental Family History Reviewed: No Children Family History Reviewed: No Sibling(s) Family History Reviewed.: No Medication/Allergy Allergies/Adverse Reactions: No Known Allergies Allergy (Unverified 04/02/11 23:47) Review of Systems Constitutional: PRESENT: weakness. ABSENT: chills, fever(s), headache(s), weight gain, weight loss Respiratory: ABSENT: cough, hemoptysis Gastrointestinal: ABSENT: abdominal pain, constipation, diarrhea, hematemesis, hematochezia, nausea, vomiting Neurological: PRESENT: weakness. ABSENT: abnormal gait, abnormal speech, confusion, dizziness, focal weakness, syncope Psychiatric: ABSENT: anxiety, depression, homidical ideation, suicidal ideation Physical Exam Vital Signs: Temp Pulse Resp BP Pulse Ox 97.5 F 74 16 120/72 100 12/13/18 12:32 12/13/18 12:32 12/13/18 12:32 12/13/18 12:32 12/13/18 12:32 General appearance: PRESENT: no acute distress Respiratory exam: PRESENT: clear to auscultation jenise. ABSENT: rales, rhonchi, wheezes Cardiovascular exam: PRESENT: RRR. ABSENT: diastolic murmur, rubs, systolic murmur Neurological exam: PRESENT: alert, awake, oriented to person, oriented to place, oriented to time, oriented to situation, CN II-XII grossly intact, other - Patient's upper and lower extremities motor strength was tested at 5/5 all 4 extremities. Patient was able to lift both legs up off the stretcher patient had good hamstrings and quadriceps motor testing. Patient was able to dorsiflex and plantarflex both feet against resistance. ABSENT: motor sensory deficit Psychiatric exam: PRESENT: agitated, other - Patient is agitated about the care he received in the way he was discharged as far as equipment Results Laboratory Results: 12/13/18 15:32 12/13/18 15:32 12/13/18 12/13/18 15:32 15:32 WBC 7.4 RBC 6.13 H Hgb 18.3 H Hct 54.5 H MCV 89 MCH 29.9 MCHC 33.7 RDW 14.4 H Plt Count 220 Seg Neutrophils % 55.9 Sodium 138.4 Potassium 4.8 Chloride 101 Carbon Dioxide 30 Anion Gap 7 BUN 15 Creatinine 1.05 Est GFR ( Amer) > 60 Glucose 97 Calcium 10.2 Total Bilirubin 0.7 AST 25 Alkaline Phosphatase 112 Total Protein 8.3 H Albumin 4.5 12/13/18 12/13/18 15:32 15:32 Creatine Kinase 84 CK-MB (CK-2) 0.57 Troponin I < 0.012 Impressions: Chest X-Ray 12/13/18 12:30 IMPRESSION: NO ACUTE FINDINGS. Head CT 11/01/19 12:30 IMPRESSION: NO ACUTE INTRACRANIAL FINDINGS. EVIDENCE OF ACUTE STROKE: NO. Assessment and Plan - Plan Summary Summary: Put patient in the hospital review all of his previous work-up which actually already done. Repeat some of his labs. Consult discharge planning and PT and OT first thing in the morning. Try to make a determination early tomorrow as to whether or not the patient will meet criteria for other rehab and/or placement issues I do not feel that patient needs to be transferred to higher level of care. Patient is medically stable at this time. - Time Time Spent with patient: 35 or more minutes
[2018-12-13] MEDS: ASPIRIN/DIPYRIDAMOLE 25-200 MG 1 CAP.SR CPMP.12HR PO SCH (19:25)
[2018-12-13] MEDS: ENOXAPARIN SODIUM INJ 40 MG/0.4 ML DISP.SYRIN SUBCUT SCH (19:25)
[2018-12-13] MEDS ORDERED: AMLODIPINE BESYLATE 10 MG TABLET PO SCH (22:00)
[2018-12-13] MEDS ORDERED: LATANOPROST 0.005% OPH SOLN 2.5 ML OS SCH (22:00)
[2018-12-13] MEDS: FAMOTIDINE 20 MG TABLET PO SCH (22:35)
[2018-12-14 05:11] LABS: HEMATOCRIT 47.9 % (37.9-51.0); HEMOGLOBIN 16.7 g/dL (13.5-17.0); MEAN CORPUSCULAR HEMOGLOBIN 30.7 pg (27.0-33.4); MEAN CORPUSCULAR HGB CONC 34.8 g/dL (32.0-36.0); MEAN CORPUSCULAR VOLUME 88 fl (80-97); PLATELET COUNT 180 10^3/uL (150-450); RED BLOOD COUNT 5.43 10^6/uL (4.35-5.55); RED CELL DISTRIBUTION WIDTH 14.2 % (11.5-14.0); WHITE BLOOD COUNT 7.7 10^3/uL (4.0-10.5)
[2018-12-14 05:26] LABS: ANION GAP 9 (5-19); BLOOD UREA NITROGEN 18 mg/dL (7-20); CALCIUM 9.7 mg/dL (8.4-10.2); CARBON DIOXIDE 26 mmol/L (22-30); CHLORIDE 107 mmol/L (98-107); CHOLESTEROL 109.76 mg/dL (0-200); GLUCOSE 116 mg/dL (75-110); POTASSIUM 4.1 mmol/L (3.6-5.0); TRIGLYCERIDES 103 mg/dL (<150)
[2018-12-14 05:36] LABS: DIRECT LDL 66 mg/dL (<100)
--- NOTE | 2018-12-14 09:00 | EKG REPORT ---
SEVERITY:- NORMAL ECG - SINUS RHYTHM : Confirmed by: Dustin Thorpe MD 14-Dec-2018 09:00:02
[2018-12-14] MEDS ORDERED: DEXTROSE 50%-WATER 25 GM/50 ML DISP.SYRIN IV PRN ×2 (09:14)
[2018-12-14] MEDS ORDERED: GLUCAGON,HUMAN RECOMB 1 MG INJ IM PRN (09:14)
[2018-12-14] MEDS ORDERED: DEXTROSE 40% GEL 15 GM TUBE PO PRN ×2 (09:14)
--- NOTE | 2018-12-14 09:24 | PDOC PROGRESS REPORT ---
Subjective Progress Note for:: 12/14/18 Reason For Visit: GENERALIZED WEAKNESS,TIAS,UTI,HYPERTENSION 12/14/2018 Patient was discharged home from the hospital on December 11, 2018. Physical therapy at home called EMS yesterday afternoon because of weakness Patient states that all this weakness started in the arms and hands as well as legs November the after having played pool the night before. Patient denies trauma such as falling or being struck Physical Exam Vital Signs: Temp Pulse Resp BP Pulse Ox 98.3 F 77 16 119/67 98 12/14/18 07:38 12/14/18 07:38 12/14/18 07:38 12/14/18 07:38 12/14/18 07:38 Intake & Output 12/13/18 12/14/18 12/15/18 06:59 06:59 05:59 Output Total 1 Balance -1 Weight 77.9 kg General appearance: PRESENT: no acute distress Respiratory exam: PRESENT: clear to auscultation jenise. ABSENT: rales, rhonchi, wheezes Cardiovascular exam: PRESENT: RRR. ABSENT: diastolic murmur, rubs, systolic murmur Neurological exam: PRESENT: alert, awake, oriented to person, oriented to place, oriented to time, oriented to situation, CN II-XII grossly intact, other - Patient appears to have difficulty with hands and coordination. States he had trouble holding a spoon this morning.. ABSENT: motor sensory deficit Psychiatric exam: PRESENT: appropriate affect, normal mood. ABSENT: homicidal ideation, suicidal ideation Results Laboratory Results: 12/14/18 03:36 12/14/18 03:36 12/13/18 12/13/18 12/13/18 15:32 15:32 15:32 WBC 7.4 RBC 6.13 H Hgb 18.3 H Hct 54.5 H MCV 89 MCH 29.9 MCHC 33.7 RDW 14.4 H Plt Count 220 Seg Neutrophils % 55.9 Sodium 138.4 Potassium 4.8 Chloride 101 Carbon Dioxide 30 Anion Gap 7 BUN 15 Creatinine 1.05 Est GFR ( Amer) > 60 Glucose 97 Calcium 10.2 Magnesium Total Bilirubin 0.7 AST 25 Alkaline Phosphatase 112 C-Reactive Protein 13.2 H Total Protein 8.3 H Albumin 4.5 Triglycerides Cholesterol LDL Cholesterol Direct VLDL Cholesterol HDL Cholesterol 12/14/18 12/14/18 03:36 03:36 WBC 7.7 RBC 5.43 Hgb 16.7 Hct 47.9 MCV 88 MCH 30.7 MCHC 34.8 RDW 14.2 H Plt Count 180 Seg Neutrophils % Sodium 141.7 Potassium 4.1 Chloride 107 Carbon Dioxide 26 Anion Gap 9 BUN 18 Creatinine 1.10 Est GFR ( Amer) > 60 Glucose 116 H Calcium 9.7 Magnesium 2.1 Total Bilirubin AST Alkaline Phosphatase C-Reactive Protein Total Protein Albumin Triglycerides 103 Cholesterol 109.76 LDL Cholesterol Direct 66 VLDL Cholesterol 21.0 HDL Cholesterol 35 L 12/13/18 12/13/18 15:32 15:32 Creatine Kinase 84 CK-MB (CK-2) 0.57 Troponin I < 0.012 Impressions: Chest X-Ray 12/13/18 12:30 IMPRESSION: NO ACUTE FINDINGS. Head CT 12/13/18 12:30 IMPRESSION: NO ACUTE INTRACRANIAL FINDINGS. EVIDENCE OF ACUTE STROKE: NO. Assessment and Plan - Diagnosis (4) Diabetes mellitus type 2 in nonobese Is this a current diagnosis for this admission?: Yes - Plan Summary Summary: Put patient in the hospital review all of his previous work-up which actually already done. Repeat some of his labs. Consult discharge planning and PT and OT first thing in the morning. Try to make a determination early tomorrow as to whether or not the patient will meet criteria for other rehab and/or placement issues I do not feel that patient needs to be transferred to higher level of care. Patient is medically stable at this time.
[2018-12-14] MEDS ORDERED: METOPROLOL SUCCINATE 25 MG TAB.SR.24H PO SCH (10:00)
[2018-12-14] MEDS: ASPIRIN/DIPYRIDAMOLE 25-200 MG 1 CAP.SR CPMP.12HR PO SCH (10:27)
[2018-12-14] MEDS: FAMOTIDINE 20 MG TABLET PO SCH (10:27)
[2018-12-14] MEDS: ENOXAPARIN SODIUM INJ 40 MG/0.4 ML DISP.SYRIN SUBCUT SCH (10:27)
[2018-12-14] MEDS: DOCUSATE SODIUM 100 MG CAPSULE PO SCH ×2 (10:28→18:03)
[2018-12-14] MEDS: INSULIN LISPRO 100 UNIT/ML 3 ML VIAL SUBCUT SCH ×2 (12:24→16:37)
[2018-12-14 12:41] LABS: APPEARANCE,URINE SLIGHTLY-CLOUDY; BILIRUBIN,URINE NEGATIVE (NEGATIVE); COLOR,URINE YELLOW; GLUCOSE, URINE NEGATIVE (NEGATIVE); KETONES,URINE TRACE mg/dL (NEGATIVE); PROTEIN,URINE NEGATIVE (NEGATIVE); URINE SPECIFIC GRAVITY 1.026
[2018-12-14] MEDS ORDERED: CIPROFLOXACIN HCL 500 MG TABLET PO SCH (14:00)
[2018-12-14] MEDS ORDERED: METFORMIN HCL 500 MG TABLET PO SCH (16:00)
--- NOTE | 2018-12-14 16:44 | RADIOLOGY REPORT (SQ) ---
EXAM DESCRIPTION: MRI CERVICAL SPINE COMBO COMPLETED DATE/TIME: 12/14/2018 4:03 pm REASON FOR STUDY: r/o cord compression COMPARISON: None. TECHNIQUE: Sagittal and Axial imaging includes T1, T2, STIR and gradient echo sequences. T1 post riki olinium sequences. CONTRAST TYPE AND DOSE: 15 mL Dotarem. RENAL FUNCTION: GFR > 60. LIMITATIONS: None. FINDINGS: ALIGNMENT: Straightening of normal cervical lordosis VERTEBRAE: Intact. BONE MARROW: No marrow replacement. Endplate marrow changes greatest at C4-5 and C6-7. DISCS: Intervertebral disc height loss at all cervical levels although greatest at C4-5 and C6-7. HARDWARE: None in the spine. BASE OF BRAIN: Normal in size and signal intensity. SOFT TISSUES: No soft tissue masses. C1-C2: No significant spinal stenosis. C2-C3: Broad-based posterior disc protrusion. Right uncovertebral hypertrophy. Severe right and mil d left neural foraminal narrowing. Minimal spinal canal stenosis. C3-C4: Broad-based posterior disc protrusion. Bilateral uncovertebral hypertrophy. Severe bilateral neural foraminal narrowing. Minimal spinal canal stenosis. C4-C5: Prominent anterior marginal osteophyte formation. Broad-based posterior disc protrusion. Lef t uncovertebral hypertrophy. Moderate right and severe left neural foraminal narrowing. Mild spinal canal stenosis. C5-C6: Small central disc protrusion with a superimposed inferiorly migrating central disc extrusion/ sequestration measuring 4 AP x 12 TR x 16 mm CC extending from the and C5-6 disc level to the C5-6 in ferior endplate with peripheral enhancement. Extruded disc exerts mass effect upon the right ventral aspect of the cervical cord and contributes to overall moderate spinal canal stenosis. Increased T2 signal within the cervical cord from the C4 through C6 levels. Increased intrerspinous ligament T2 signal and enhancement. C6-C7: Prominent anterior marginal osteophyte formation. Broad-based posterior disc protrusion with an asymmetric left central component. Bilateral uncovertebral hypertrophy. Mild right and moderate left neural foraminal narrowing. Moderate spinal canal stenosis. C7-T1: No significant spinal stenosis or exit foraminal stenosis. UPPER THORACIC: Incompletely imaged. No significant spinal stenosis or exit foraminal stenosis. ENHANCEMENT: No abnormal enhancement. OTHER: Thyromegaly. IMPRESSION: C5-6 inferiorly migrating central disc extrusion/sequestration exerting mass effect upon the right ventral cervical cord with corresponding myelomalacia extending from the C4-C6 level. Per ipheral enhancement suggests acute herniation. Degenerative disc disease of the remaining cervical l evels as above. C5-6 interspinous ligament sprain. Thyromegaly. COMMENT: None. TECHNICAL DOCUMENTATION: JOB ID: [id number] [employer]- All Rights Reserved Reading location - IP/workstation name: [email or web address]
--- NOTE | 2018-12-14 17:49 | Progress Note ---
Provider Note Provider Note: 12/14/2018 Today watch the patient ambulate with physical therapy. Patient appeared to be very weak in both upper and lower extremities though he was able to walk with physical therapy assistance and no walker. Patient seemed to have a scissors gait with his right leg. 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 Reflexes are actually 2+ in all 4 extremities Slightly positive Babinski on the right negative on the left Patient has no sustained beats of clonus on either foot I ordered a cervical MRI scan which shows cord compression at C5-6 that extends cephalad as well as caudally. Also some evidence of myelomalacia I have spoken to , lead hospitalist, will start transfer process to [facility]. Did put the patient in a hard cervical collar.
[2018-12-14] MEDS ORDERED: DORZOLAMIDE HCL 2%/TIMOLOL MALEAT 0.5% OPH SOLN 10 ML OU SCH (18:00)
--- NOTE | 2018-12-14 18:28 | PDOC TRANSFER SUMMARY ---
General Admission Date/PCP: 12/13/18 17:22 [facility] Resuscitation Status: Full Code - Transfer Diagnosis (4) Diabetes mellitus type 2 in nonobese Is this a current diagnosis for this admission?: Yes (5) Cord compression Is this a current diagnosis for this admission?: Yes (6) Cervical cord compression with myelopathy Is this a current diagnosis for this admission?: Yes - Transfer Medications Home Medications: Amlodipine Besylate [Norvasc 10 mg Tablet] 10 mg PO DAILY 12/13/18 Ciprofloxacin HCl [Cipro 500 mg Tablet] 500 mg PO BID 12/13/18 Dorzolamide HCl/Timolol Maleat [Cosopt Eye Drops] 1 drop OU BID 12/13/18 Metoprolol Succinate [Toprol Xl 25 mg Tab.sr] 25 mg PO DAILY 12/13/18 Transfer Medications: Current Medications Acetaminophen (Tylenol 325 Mg Tablet) 650 mg PO Q4HP PRN PRN Reason: FOR HEADACHE OR PAIN Stop: 01/12/19 17:58 Al Hydrox/Mg Hydrox/Simethicone (Maalox Plus Susp 30 Udcup) 15 ml PO Q6HP PRN PRN Reason: HEARTBURN Stop: 01/12/19 17:58 Amlodipine Besylate (Norvasc 10 Mg Tablet) 10 mg PO QHS MIN Stop: 01/12/19 21:59 Last Admin: 12/13/18 22:35 Dose: 10 mg Documented by: Ciprofloxacin (Cipro 500 Mg Tablet) 500 mg PO Q12 MIN Stop: 12/21/18 13:59 Last Admin: 12/14/18 16:34 Dose: 500 mg Documented by: Dexamethasone Sodium Phosphate (Decadron Inj 4 Mg/Ml Vial) 8 mg IV NOW ONE Stop: 12/14/18 18:06 Dextrose (Dextrose Inj 50% Syringe (25 Gm/50 Ml)) 12.5 gm IV PRN PRN; Protocol PRN Reason: FOR BG 50-69 IN ALERT PATIENT Stop: 01/13/19 09:13 Dextrose (Dextrose Inj 50% Syringe (25 Gm/50 Ml)) 25 gm IV PRN PRN; Protocol PRN Reason: PER PROTOCOL Stop: 01/13/19 09:13 Dipyridamole/Aspirin (Aggrenox 25 Mg/200 Mg Capsule Sa) 1 cap.sr PO DAILY MIN Stop: 01/12/19 18:59 Last Admin: 12/14/18 10:27 Dose: 1 cap.sr Documented by: Docusate Sodium (Colace 100 Mg Capsule) 100 mg PO BID [facility] Stop: 01/13/19 09:59 Last Admin: 12/14/18 18:03 Dose: Not Given Documented by: Dorzolamide/Timolol (Cosopt Oph Soln 10 Ml) 1 drop OU BID MIN Stop: 01/13/19 17:59 Last Admin: 12/14/18 18:06 Dose: 1 drop Documented by: Famotidine (Pepcid 20 Mg Tablet) 20 mg PO Q12 MIN Stop: 01/12/19 21:59 Last Admin: 12/14/18 10:27 Dose: 20 mg Documented by: Glucagon (Glucagen Inj 1 Mg Vial) 1 mg SUBCUT PRN PRN; Protocol PRN Reason: Evaluate for BG < 70 Stop: 01/12/19 17:58 Glucagon (Glucagen Inj 1 Mg Vial) 1 mg IM PRN PRN; Protocol PRN Reason: Evaluate for BG < 70 Stop: 01/13/19 09:13 Glucose (Glutose 40% Gel 15 Gm Tube) 15 gm PO PRN PRN; Protocol PRN Reason: FOR BG 50-69 IN ALERT PATIENT Stop: 01/13/19 09:13 Glucose (Glutose 40% Gel 15 Gm Tube) 30 gm PO PRN PRN; Protocol PRN Reason: FOR BG < 50 IN ALERT PATIENT Stop: 01/13/19 09:13 Insulin Human Lispro (Humalog Insulin 100 Unit/1 Ml 3 Ml Vial) 0 - 12 unit SUB CUT ACHS [facility]; Protocol Stop: 01/13/19 10:59 Last Admin: 12/14/18 16:37 Dose: Not Given Documented by: Latanoprost (Xalatan 0.005% Oph Soln 2.5 Ml) 1 drop OS QHS [facility] Stop: 01/12/19 21:59 Last Admin: 12/13/18 22:36 Dose: Not Given Documented by: Magnesium Hydroxide (Milk Of Magnesia 30 Ml Udcup) 30 ml PO DAILYP PRN PRN Reason: FOR CONSTIPATION Stop: 01/12/19 17:58 Metformin HCl (Glucophage 500 Mg Tablet) 500 mg PO BIDACBS [facility] Stop: 01/13/19 15:59 Last Admin: 12/14/18 16:27 Dose: Not Given Documented by: Metoprolol Succinate (Toprol Xl 25 Mg Tab.Sr) 25 mg PO DAILY [facility] Stop: 01/13/19 09:59 Last Admin: 12/14/18 10:27 Dose: 25 mg Documented by: Ondansetron HCl (Zofran Odt 4 Mg Tablet) 4 mg PO Q8HP PRN PRN Reason: FOR NAUSEA/VOMITING Stop: 01/12/19 17:58 Ondansetron HCl (Zofran Inj/Pf 4 Mg/2 Ml Sdv) 4 mg IV Q8HP PRN PRN Reason: FOR NAUSEA/VOMITING Stop: 01/12/19 17:58 Oxycodone/Acetaminophen (Percocet 5-325 Mg Tablet) 1 tab PO Q6HP PRN PRN Reason: FOR PAIN Stop: 12/20/18 17:58 Sodium Chloride (Saline Flush 2.5 Ml Monoject Prefil Syrin) 2.5 ml IV Q8 MIN Stop: 01/12/19 21:59 Last Admin: 12/14/18 13:05 Dose: Not Given Documented by: Zolpidem Tartrate (Ambien 5 Mg Tablet) 5 mg PO HSP PRN PRN Reason: SLEEP OR INSOMNIA Stop: 12/20/18 17:58 - Allergies Allergies/Adverse Reactions: No Known Allergies Allergy (Unverified 04/02/11 23:47) - Diet/Activity Discharge Diet: As Tolerated, Diabetic Hospital Course Hospital Course: 12/14/2018 Patient was actually just in the hospital here and discharged December 11 for TIA, CVA work-up. Patient had presented with weakness at that time. MRI of the brain ,CT head of the brain and carotid Dopplers were done which were all basically normal. Patient was discharged with physical therapy at home and home health and yesterday on Sunday, December 13 physical therapy sending back to the emergency room because of generalized weakness and being unable to participate with physical therapy. Patient tells me that all of his symptoms started November 13 for no apparent reason. He denies trauma to head or neck. This morning he tells me that he is unable to hold eating utensils as a result of weakness in his hands. Actually had physical therapy come to his room and watched him ambulate with a four-point walker. She had spasticity to his legs and a scissors gait with his right leg, had difficulty holding onto the walker with his hands. She has a slightly positive Babinski on the right negative beats of clonus bilaterally. His reflexes appear to be 2+ in all 4 extremities. Following this demonstration with a walker I ordered a cervical MRI scan. It was not being done in a timely fashion today so we called MRI and they said unless it was stat it would not be done today. Therefore the order was changed to stat and it was completed this afternoon. Once I sawthe study I spoke to Dr. White, the lead hospitalist. I have spoken to the transfer center invited and the patient has been accepted by neurosurgeon Dr. Choi. I also placed the patient a hard cervical collar and after speaking to the neurosurgeon the patient was given Decadron 8 mg IV. Past medical history includes new onset diabetes as of this week. Patient has a right knee replacement. Patient is being treated for a UTI on his last admission so I am continuing the Cipro. Patient is also being treated for hypertension as well Informed the patient and his sister who lives in [place] of the plan and they agree. Physical Exam Vital Signs: Temp Pulse Resp BP Pulse Ox 98.1 F 79 18 117/87 H 100 12/14/18 16:20 12/14/18 16:20 12/14/18 16:20 12/14/18 16:20 12/14/18 16:20 Intake & Output 12/13/18 12/14/18 12/15/18 06:59 06:59 05:59 Output Total 1 Balance -1 Weight 77.9 kg 77.9 kg General appearance: PRESENT: mild distress Head exam: PRESENT: atraumatic, normocephalic Respiratory exam: PRESENT: clear to auscultation jenise. ABSENT: rales, rhonchi, wheezes Cardiovascular exam: PRESENT: RRR. ABSENT: diastolic murmur, rubs, systolic murmur Neurological exam: PRESENT: alert, awake, oriented to person, oriented to place, oriented to time, oriented to situation, reflexes normal, abnormal gait, ataxia, other - Mildly positive Babinski on the right Psychiatric exam: PRESENT: appropriate affect, normal mood. ABSENT: homicidal ideation, suicidal ideation Results Laboratory Results: 12/14/18 03:36 12/14/18 03:36 12/13/18 12/14/18 12/14/18 15:32 03:36 03:36 WBC 7.7 RBC 5.43 Hgb 16.7 Hct 47.9 MCV 88 MCH 30.7 MCHC 34.8 RDW 14.2 H Plt Count 180 Sodium 141.7 Potassium 4.1 Chloride 107 Carbon Dioxide 26 Anion Gap 9 BUN 18 Creatinine 1.10 Est GFR ( Amer) > 60 Glucose 116 H Calcium 9.7 Magnesium 2.1 C-Reactive Protein 13.2 H Triglycerides 103 Cholesterol 109.76 LDL Cholesterol Direct 66 VLDL Cholesterol 21.0 HDL Cholesterol 35 L Urine Color Urine Appearance Urine pH Ur Specific [place] Urine Protein Urine Glucose (UA) Urine Ketones Urine Blood Urine Nitrite Ur Leukocyte Esterase Urine WBC (Auto) Urine RBC (Auto) 12/14/18 10:30 WBC RBC Hgb Hct MCV MCH MCHC RDW Plt Count Sodium Potassium Chloride Carbon Dioxide Anion Gap BUN Creatinine Est GFR ( Amer) Glucose Calcium Magnesium C-Reactive Protein Triglycerides Cholesterol LDL Cholesterol Direct VLDL Cholesterol HDL Cholesterol Urine Color YELLOW Urine Appearance SLIGHTLY-CLOUDY Urine pH 5.0 Ur Specific [place] 1.026 Urine Protein NEGATIVE Urine Glucose (UA) NEGATIVE Urine Ketones TRACE H Urine Blood MODERATE H Urine Nitrite Cancelled Ur Leukocyte Esterase Cancelled Urine WBC (Auto) Cancelled Urine RBC (Auto) 22 12/13/18 12/13/18 15:32 15:32 Creatine Kinase 84 CK-MB (CK-2) 0.57 Troponin I < 0.012 Impressions: Chest X-Ray 12/13/18 12:30 IMPRESSION: NO ACUTE FINDINGS. Head CT 12/13/18 12:30 IMPRESSION: NO ACUTE INTRACRANIAL FINDINGS. EVIDENCE OF ACUTE STROKE: NO. Cervical Spine MRI 12/14/18 00:00 IMPRESSION: C5-6 inferiorly migrating central disc extrusion/sequestration exerting mass effect upon the right ventral cervical cord with corresponding myelomalacia extending from the C4-C6 level. Peripheral enhancement suggests acute herniation. Degenerative disc disease of the remaining cervical levels as above. C5-6 interspinous ligament sprain. Thyromegaly. Plan Discharge Plan: She is to be transferred to [facility] to the neurosurgeon Dr. Choi. Patient will keep his hard collar in place until arriving at [facility]. Patient was given Decadron 8 mg IV. Maintain patient's pressure with a mean pressure of approximately 80. I have DC'd the Lovenox well as aspirin and Plavix. Also DC the metformin and patient will be maintained on a sliding scale. Patient is medically stable for transfer Time Spent: Greater than 30 Minutes
[2018-12-14] MEDS ORDERED: DEXAMETHASONE SOD PHOSPHATE INJ 4 MG/1 ML VIAL IV ONE (19:10)
[2018-12-14 20:03] VITALS: BP 111/73
== END 2018-12-14 20:33 | disposition short-term general hospital (02) ==
LOC: ER 11:43 → INTOOBSV 17:22 → EH 17:22 → 3N 21:56
PROVIDERS: ADMIT Hospitalist; ATTEND Hospitalist
DX: R26.89 Other abnormalities of gait and mobility (principal); R53.1 Weakness; I10 Essential (primary) hypertension; E11.9 Type 2 diabetes mellitus without complications; G95.29 Other cord compression; N39.0 Urinary tract infection, site not specified; R25.2 Cramp and spasm; R45.1 Restlessness and agitation; Z96.651 Presence of right artificial knee joint; G95.89 Other specified diseases of spinal cord; Z86.73 Personal history of transient ischemic attack (TIA), and cerebral infarction without residual deficits
CPT/HCPCS: 93005 ×2; 99285; 36415 ×2; 87086; 82553; 82962; 82550; 83735; 85025; 85027; 85652; 85610; 85730; 86140; 80048; 80053; 81001; 84484; 83036; 80061; 72156; 71045; 70450; 93010 ×2; 97116; 97163; 97535; 97166; G0378 ×3; L0120; A9270 ×8; J1100; J1650 ×2; J3490

== ENCOUNTER 2019-01-10 10:18 | Emergency (ER) | payer MEDICARE, MEDICAID ==
--- NOTE | 2019-01-10 12:44 | ER Document Report ---
Entered by LUIS WERNER SCRIBE 01/10/19 1211 Acting as scribe for:CARLOS MONTERO MD ED General - General Chief Complaint: Leg Pain Stated Complaint: NUMBESS ON RIGHT LEG Time Seen by Provider: 01/10/19 11:59 Mode of Arrival: Medic Information source: Patient Notes: This 63-year-old male patient presents to the emergency department today with complaints of "I think my spine is getting bad again". Patient had an MRI of his cervical spine performed here on December 14, 2018 and was found to have: "C5-6 inferiorly migrating central disc extrusion/sequestration exerting mass- effect upon the right ventricle cervical cord with corresponding myomalacia extending from the C4-C6 level. Peripheral enhancement suggests acute herniation. Degenerative disc disease of the remaining cervical levels as above. C5-6 interspinous ligament sprain. Thyroid megaly." Patient was transferred to [facility], stating that he was there for several weeks but he was never operated on as they could not get his "blood thick enough" as he had been on plavix. Patient was discharged from [facility] a few weeks ago to [place] [facility]. Patient was discharged from [facility] 5 days ago. Patient states he has not had any of his hypertension medication for the last 5 days as he has run out. Patient states that the symptoms he is having today include extremity tingling, hand crippling sensation, feeling cold and numb, calf swelling, and incontinence. TRAVEL OUTSIDE OF THE [place] IN LAST 30 DAYS: No - Related Data Allergies/Adverse Reactions: No Known Allergies Allergy (Verified 01/10/19 15:50) Past Medical History - General Information source: Patient, [facility] Records - Social History Smoking Status: Current Every Day Smoker Cigarette use (# per day): Yes - Quarter pack per day Frequency of alcohol use: None Drug Abuse: None Family History: Reviewed & Not Pertinent Patient has suicidal ideation: No Patient has homicidal ideation: No - Past Medical History Cardiac Medical History: Reports: Hx Hypertension Past Surgical History: Reports: Hx Orthopedic Surgery - R knee replacement - Immunizations Hx Diphtheria, Pertussis, Tetanus Vaccination: Yes Hx Pneumococcal Vaccination: 02/13/00 Review of Systems - Review of Systems Constitutional: No symptoms reported EENT: No symptoms reported Cardiovascular: No symptoms reported Respiratory: No symptoms reported Gastrointestinal: No symptoms reported Genitourinary: No symptoms reported Male Genitourinary: No symptoms reported Musculoskeletal: No symptoms reported Skin: No symptoms reported Hematologic/Lymphatic: No symptoms reported Neurological/Psychological: See HPI -: Yes All other systems reviewed and negative Physical Exam - Vital signs Vitals: Temp Pulse Resp BP Pulse Ox 98.1 F 82 14 135/71 H 100 01/10/19 10:34 01/10/19 10:34 01/10/19 10:34 01/10/19 10:34 01/10/19 10:34 - Notes Notes: Physical Exam: General: Alert. HEENT: Normocephalic. Atraumatic. PERRL. Extraocular movements intact. Oropharynx clear. Neck: In hard c-collar, requesting for it to be tightened, states it feels like it has gotten loose. The collar was tightened, he reports that it feels much better. Respiratory: No respiratory distress. Clear and equal breath sounds bilaterally. Cardiovascular: Regular rate and rhythm. Abdominal: Normal Inspection. Non-tender. No distension. Normal Bowel Sounds. Back: No gross abnormalities. Rectal: On digital rectal exam, initially the patient seemed to have little to no rectal tone. When I asked him to clamp down and tighten up his anal region, he is able to squeeze reasonably well, when he stops squeezing again there is no sphincter tone. Extremities: Moves all four extremities. Upper extremities: Normal ROM. 4/5 manager risk management strength in bilateral hands. Lower extremities: Normal inspection. No edema. Normal ROM. Neurological: Normal cognition. AAOx4. Normal speech. Normal dorsi and plantarflexion of the feet. Minimal decreased sensation peripherally. Decreased anal sphincter tone. Psychological: Normal affect. Normal Mood. Skin: Warm. Dry. Normal color. Course - Re-evaluation Re-evalutation: 01/10/19 13:40 I discussed the case with Dr. Barragan at [facility]. The patient does have an appointment for January 28, 2019. He was discharged home on 12/27/2018 due to persistent abnormal platelet function following his Plavix treatment which would preclude doing any surgical procedure at that time. 01/10/19 14:36 Rectal exam shows a patulent anal sphincter. Patient was able to tighten up his anal sphincter muscles, but when he relaxed, anal sphincter once again was very loose. Postvoid residual urine was only 20 mL's. - Vital Signs Vital signs: Temp Pulse Resp BP Pulse Ox 98.1 F 85 14 128/77 H 96 01/10/19 16:04 01/10/19 16:04 01/10/19 16:04 01/10/19 16:04 01/10/19 16:04 - Laboratory Laboratory results interpreted by me: 01/10/19 12:31 POC Glucose 122 H - Consults Dr. Barragan Time consulted: 14:40 Consulted provider: other - Will accept on Nuerosurgery service at [facility]. - Transfer of Care Care transferred to following provider: Dr. Jackson Notes: 01/10/19 16:15 Patient is pending transfer to [facility]. Patient was placed on maintenance IV fluids. 01/10/19 16:28 Transport is supposed to be here at about 7:30 PM this evening. Discharge - Discharge Clinical Impression: Cervical cord compression with myelopathy Condition: Stable Disposition: [facility] Scribe Attestation: 01/10/19 12:44 I personally performed the services described in the documentation, reviewed and edited the documentation which was dictated to the scribe in my presence, and it accurately records my words and actions. I personally performed the services described in the documentation, reviewed and edited the documentation which was dictated to the scribe in my presence, and it accurately records my words and actions.
[2019-01-10] MEDS ORDERED: DEXTROSE 5%-LACTATED RINGERS 1,000 ML IV ONE (16:16)
[2019-01-10 17:00] LABS: APPEARANCE,URINE SLIGHTLY-CLOUDY; BILIRUBIN,URINE NEGATIVE (NEGATIVE); COLOR,URINE AMBER; GLUCOSE, URINE NEGATIVE (NEGATIVE); KETONES,URINE TRACE mg/dL (NEGATIVE); LEUKOCYTE ESTERASE,URINE MODERATE (NEGATIVE); NITRITE,URINE NEGATIVE (NEGATIVE); PROTEIN,URINE 30 mg/dL (NEGATIVE); URINE SPECIFIC GRAVITY 1.025
[2019-01-10 21:05] VITALS: BP 129/87
== END 2019-01-10 21:05 | disposition short-term general hospital (02) ==
LOC: ER 10:18
DX: G95.20 Unspecified cord compression (principal); G95.9 Disease of spinal cord, unspecified; F17.210 Nicotine dependence, cigarettes, uncomplicated; I10 Essential (primary) hypertension
CPT/HCPCS: 99285; 51701; 96365; 96366; 82962; 81001; J7121

== ENCOUNTER → 2019-01-30 | Outpatient (CLI) | payer MEDICARE, MEDICAID ==
--- NOTE | 2019-01-30 11:20 | RADIOLOGY REPORT (SQ) ---
EXAM DESCRIPTION: CERV SP 4 OR 5 VIEWS COMPLETED DATE/TIME: 01/30/2019 9:51 am REASON FOR STUDY: CERVICAL CORD COMPRESSIN WITH MYELOPATHY G95.20 UNSPECIFIED CORD COMPRESSION COMPARISON: MRI cervical spine 12/14/2018 NUMBER OF VIEWS: Four views. TECHNIQUE: AP and lateral neutral, lateral flexion, lateral extension radiographic images acquired o f the cervical spine. LIMITATIONS: None. FINDINGS: MINERALIZATION: Normal. ALIGNMENT: Anatomic. No instability on flexion/extension. VERTEBRAE: Vertebral bodies of normal height. DISCS: Post discectomy and fusion at C5-6, with the disc space prosthesis and anterior fixation plate with anchoring screws in the C5 and C6 vertebral bodies. Moderate to high-grade disc space loss of height at C4-5 and C6-7. FORAMINA: Not well seen LATERAL AND POSTERIOR ELEMENTS: Facets, lateral masses and spinous processes without significant find ings. HARDWARE: None in the spine. SOFT TISSUES: No prevertebral soft tissue swelling OTHER: No other significant finding. IMPRESSION: Post discectomy and fusion at the C5-6 level. No instability on flexion/extension. No prevertebral soft tissue swelling TECHNICAL DOCUMENTATION: JOB ID: [id number]- All Rights Reserved Reading location - IP/workstation name: [email or web address]
== END ==
LOC: RAD 09:22
PROVIDERS: ATTEND Internal Medicine Cardiovascular Disease
DX: G95.29 Other cord compression (principal)
CPT/HCPCS: 72050

== ENCOUNTER 2019-06-06 10:18 | Emergency (ER) | payer OTHER, MEDICARE, MEDICAID ==
--- NOTE | 2019-06-06 10:22 | ER Document Report ---
ED Medical Screen (RME) - General Chief Complaint: Abnormal Lab Results Stated Complaint: ABNORMALS LABS Time Seen by Provider: 06/06/19 10:20 Mode of Arrival: Ambulatory Information source: Patient Notes: 64-year-old male who is legally blind with history of glaucoma, high blood pressure, stroke presents to the emergency department for low H&H. [facility] to arrival and reported that patient's H&H dropped from 12/? to 9/?29, she was not exactly sure of the numbers. She did report patient is on anticoagulants. Patient reports he is on anticoagulants because of a blood clot in his right leg. He reports his right arm is numb and tingling he has been for the past 2 months. He reports his right leg is swollen due to the blood clot. Patient denies chest pain, shortness of breath, denies blood in his urine or stool. Patient also reports he is visually impaired so he did not notice anything. Patient looks good nontoxic. I have greeted and performed a rapid initial assessment of this patient. A comprehensive ED assessment and evaluation of the patient, analysis of test results and completion of the medical decision making process will be conducted by additional ED providers. TRAVEL OUTSIDE OF THE [place] IN LAST 30 DAYS: No - Related Data Allergies/Adverse Reactions: No Known Allergies Allergy (Verified 01/10/19 15:50) Past Medical History - Past Medical History Cardiac Medical History: Reports: Hx Hypertension Past Surgical History: Reports: Hx Orthopedic Surgery - R knee replacement - Immunizations Hx Diphtheria, Pertussis, Tetanus Vaccination: Yes
[2019-06-06 10:58] LABS: ABSOLUTE BASOPHILS # (AUTO) 0.2 10^3/uL (0.0-0.2); ABSOLUTE EOSINOPHILS # (AUTO) 0.2 10^3/uL (0.0-0.6); ABSOLUTE LYMPHOCYTES (AUTO) 2.8 10^3/uL (0.5-4.7); ABSOLUTE MONOCYTES (AUTO) 0.6 10^3/uL (0.1-1.4); ABSOLUTE NEUT (AUTO) 2.5 10^3/uL (1.7-8.2); BASOPHILS % (AUTO) 2.5 % (0-2); EOSINOPHILS % (AUTO) 3.7 % (0-6); HEMATOCRIT 29.2 % (37.9-51.0); HEMOGLOBIN 9.5 g/dL (13.5-17.0); LYMPHOCYTES % (AUTO) 44.5 % (13-45); MEAN CORPUSCULAR HEMOGLOBIN 25.1 pg (27.0-33.4); MEAN CORPUSCULAR HGB CONC 32.3 g/dL (32.0-36.0); MEAN CORPUSCULAR VOLUME 78 fl (80-97); MONOCYTES % (AUTO) 8.8 % (3-13); PLATELET COUNT 425 10^3/uL (150-450); RED BLOOD COUNT 3.77 10^6/uL (4.35-5.55); RED CELL DISTRIBUTION WIDTH 16.7 % (11.5-14.0); SEGMENTED NEUTROPHILS % (AUTO) 40.5 % (42-78); TOTAL CELLS COUNTED % (AUTO) 100 %; WHITE BLOOD COUNT 6.3 10^3/uL (4.0-10.5)
[2019-06-06 11:00] LABS: INTERNATIONAL RATION (INR) 1.43; PROTHROMBIN TIME 17.5 SEC (11.4-15.4)
--- NOTE | 2019-06-06 11:18 | ER Document Report ---
ED General - General Chief Complaint: Abnormal Lab Results Stated Complaint: ABNORMALS LABS Time Seen by Provider: 06/06/19 10:20 Primary Care Provider: [facility] [Primary Care Provider] - Follow up as needed Mode of Arrival: Ambulatory Information source: Patient, [facility] Records Notes: This 64-year-old male patient was sent to the emergency room by the [facility] for a drop in his hemoglobin. He states they told him he was in the 12 g region for the past month and yesterday it was 9 so they suggested he come to the emergency room for evaluation. He denies any change in his bowels. He was seen here on 01/10/2019 with a C5-6 disc herniation he went to [facility] where his anticoagulation was stopped, and IVC filter was placed, and he had a C5-6 discectomy and fusion. He is now on Xarelto. He states he has done well since the surgery. TRAVEL OUTSIDE OF THE [place] IN LAST 30 DAYS: No - Related Data Allergies/Adverse Reactions: No Known Allergies Allergy (Verified 06/06/19 10:26) Past Medical History - General Information source: Patient, [facility] Records - Social History Smoking Status: Current Every Day Smoker Cigarette use (# per day): Yes - 1/2 PPD Chew tobacco use (# tins/day): No Smoking Education Provided: No Frequency of alcohol use: None Drug Abuse: None Lives with: Friend Family History: Reviewed & Not Pertinent Patient has suicidal ideation: No Patient has homicidal ideation: No - Past Medical History Cardiac Medical History: Reports: Hx DVT - Right leg, Hx Hypertension Musculoskeletal Medical History: Reports Hx Arthritis Psychiatric Medical History: Reports: None Past Surgical History: Reports: Hx Orthopedic Surgery - R knee replacement. ACF C5-6., Hx Vascular Surgery - IVC filter - Immunizations Hx Diphtheria, Pertussis, Tetanus Vaccination: Yes Hx Pneumococcal Vaccination: 02/13/00 Physical Exam - Vital signs Vitals: Temp Pulse Resp BP Pulse Ox 98.6 F 91 18 183/96 H 99 06/06/19 10:25 06/06/19 10:25 06/06/19 10:25 06/06/19 10:25 06/06/19 10:25 Course - Re-evaluation Re-evalutation: 06/06/19 12:26 Patient's hemoglobin today is 9.5 with an MCV of 78 and MCH of 25. 4 months ago the hemoglobin was 14.2 with an MCV of 88 and an MCV of 29.8. The stool Hemoccult today was either negative or very trace positive. Several people looked at the card including myself and no one could be certain either way. - Vital Signs Vital signs: Temp Pulse Resp BP Pulse Ox 98.6 F 91 17 143/90 H 100 06/06/19 10:26 06/06/19 10:25 06/06/19 10:36 06/06/19 10:36 06/06/19 10:36 - Laboratory Result Diagrams: 06/06/19 10:36 06/06/19 11:30 Laboratory results interpreted by me: 06/06/19 06/06/19 06/06/19 10:36 10:36 11:30 RBC 3.77 L Hgb 9.5 L Hct 29.2 L MCV 78 L MCH 25.1 L RDW 16.7 H Baso % (Auto) 2.5 H Seg Neutrophils % 40.5 L PT 17.5 H Glucose 113 H Discharge - Discharge Clinical Impression: Iron deficiency anemia Qualifiers: Iron deficiency anemia type: unspecified iron deficiency Qualified Code(s): D50.9 - Iron deficiency anemia, unspecified Condition: Stable Disposition: HOME, SELF-CARE Additional Instructions: Anemia, Iron Deficiency You have anemia (a lower than normal amount of red blood cells). Our tests show it's due to lack of iron in your body. In infants and children, iron deficiency is usually due to lack of iron in the diet. In adults, it's most often caused by blood loss (heavy periods or intestinal bleeding) or by . If the cause of iron deficiency is not clear, we evaluate for hidden intestinal bleeding. Another possible cause is failure to absorb iron properly. Iron-deficiency is treated with iron supplements. Iron pills can upset your stomach and cause constipation. Taking it with food decreases nausea. Expect the stool to become darker (but not black). Taking iron with a juice high in vitamin C (orange juice, tomato juice) increases absorption. You can increase your dietary iron by eating liver, oysters, and lean beef; wheat germ, peas, and lentils; and molasses, dried prunes, spinach, and broccoli. Contact the doctor at once if you note black or tarry-looking stools, bloody vomiting, shortness of breath, chest pain, or faintness. Take the iron pills as prescribed. [facility] of [facility] work [facility] and schedule a follow-up appointment next week. RETURN TO THE EMERGENCY ROOM IF ANY NEW OR WORSENING SYMPTOMS. Prescriptions: Ferrous Sulfate [Feosol 325 mg Tablet] 325 mg PO DAILY #100 tab [facility]errals: [facility] [Primary Care Provider] - Follow up in 1 week
[2019-06-06 12:08] LABS: ALBUMIN 3.7 g/dL (3.5-5.0); ALKALINE PHOSPHATASE 87 U/L (38-126); ANION GAP 6 (5-19); ASPARTATE AMINO TRANSFERASE 18 U/L (17-59); BILIRUBIN,TOTAL 0.2 mg/dL (0.2-1.3); BLOOD UREA NITROGEN 7 mg/dL (7-20); CALCIUM 8.8 mg/dL (8.4-10.2); CARBON DIOXIDE 27 mmol/L (22-30); CHLORIDE 106 mmol/L (98-107); GLUCOSE 113 mg/dL (75-110); POTASSIUM 3.9 mmol/L (3.6-5.0); TOTAL PROTEIN 6.4 g/dL (6.3-8.2)
[2019-06-06 12:40] VITALS: BP 141/92
== END 2019-06-06 13:12 | disposition home or self-care (01) ==
LOC: ER 10:18
DX: D50.9 Iron deficiency anemia, unspecified (principal); Z79.01 Long term (current) use of anticoagulants; F17.210 Nicotine dependence, cigarettes, uncomplicated; I10 Essential (primary) hypertension
CPT/HCPCS: 36415; 80053; 85025; 85610; 86850; 86900; 86901; 99283